=== PATIENT | female | born 1965 | race Caucasian/White ===

== ENCOUNTER 2016-06-28 12:24 | Emergency (ER) | payer MEDICAID ==
[2016-06-28 13:02] LABS: Urine Drugs of Abuse Note Disclamer
[2016-06-28 13:08] LABS: Bilirubin,Urine NEG (Negative); Blood,Urine SM (Negative); Ketones,Urine NEG (Negative); Leukocyte Esterase,Urine NEG (Negative); Nitrite,Urine NEG (Negative); Protein,Urine <15 mg/dL mg/dL (Negative); Urobilinogen,Urine < 2.0 mg/dL (<2.0)
[2016-06-28 13:14] LABS: Basophils % (Auto) 1.1 % (0.0-1.8); Eosinophils % (Auto) 3.2 % (0.0-4.3); Hematocrit 40.9 % (30.3-42.9); Hemoglobin 13.6 gm/dl (10.1-14.3); Mean Corpuscular HGB Conc 33 % (30-34); Mean Corpuscular Hemoglobin 31 pg (28-32); Mean Corpuscular Volume 95 fl (79-97); Platelet Count 300 K/mm3 (140-440); Red Blood Count 4.33 M/mm3 (3.65-5.03); Red Cell Distribution Width 13.8 % (13.2-15.2); White Blood Count 9.4 K/mm3 (4.5-11.0)
[2016-06-28 13:29] LABS: Chloride 96.2 mmol/L (98-107); Potassium 3.7 mmol/L (3.6-5.0); Sodium 136 mmol/L (137-145)
[2016-06-28 13:30] LABS: Anion Gap 18 mmol/L; BUN/Creatinine Ratio 13.75; Blood Urea Nitrogen 11 mg/dL (7-17); Calcium 9.1 mg/dL (8.4-10.2); Carbon Dioxide 26 mmol/L (22-30); Glucose 85 mg/dL (65-100)
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
--- NOTE | 2016-06-28 19:53 | Event Note ---
Date: 06/28/16 Vital signs are reviewed and appreciated. Psychiatric placement/consultation is pending. Vital Signs 06/28/16 06/28/16 06/28/16 12:45 15:49 16:49 Temperature 98 F Pulse Rate 128 H 112 H Respiratory 20 18 Rate Blood Pressure 150/105 Blood Pressure 155/98 [Left] O2 Sat by Pulse 98 Oximetry
[2016-06-28 21:01] VITALS: BP 150/97
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
== END 2016-06-28 20:36 ==
LOC: ED 12:24 → EEVIPCON 12:24 → ED 20:36
DX: F31.9 Bipolar disorder, unspecified (principal); F22 Delusional disorders; F17.200 Nicotine dependence, unspecified, uncomplicated
CPT/HCPCS: 36415; 80048; 80307; 81001; 81025; 85025; 99285; G0480; 80320